=== PATIENT | female | born 1980 ===

== ENCOUNTER 2017-03-12 09:07 | Emergency (ER) | payer OTHER ==
[2017-03-12 09:24] VITALS: BP 138/79; PULSE 100; RESP 20; TEMP 98.1; O2SAT 100
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
== END 2017-03-12 12:17 | disposition home or self-care (01) ==
LOC: H.ER 09:07
DX: J02.0 Streptococcal pharyngitis (principal)

== ENCOUNTER 2017-10-27 18:03 | Emergency (ER) | payer OTHER ==
[2017-10-27 18:11] VITALS: BP 126/79; PULSE 82; RESP 18; TEMP 98; O2SAT 97
[2017-10-27] MEDS ORDERED: Sodium Chloride 0.9% 1,000 ML IV STA (18:46)
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
[2017-10-27 19:50] LABS: BASO # 0.1 K/uL (0.0-0.2); BASO % 0.6 % (0.0-2.0); EOS # 0.2 K/uL (0.0-0.7); HEMATOCRIT 35.8 % (34.0-47.0); LYMPH # 3.2 K/uL (1.0-4.3); LYMPH % 27.1 % (20.0-40.0); MEAN CELL VOLUME 84.6 fl (81.0-99.0); MEAN CORPUSCULAR HEMOGLOBIN 28.8 pg (27.0-31.0); MEAN PLATELET VOLUME 8.9 fl (7.2-11.7); MONO # 0.8 K/uL (0.0-0.8); MONO % 6.5 % (0.0-10.0); NEUT # 7.6 K/uL (1.8-7.0); NEUT % 63.8 % (50.0-75.0); RED CELL DISTRIBUTION WIDTH 14.1 % (11.5-14.5); WHITE BLOOD COUNT 11.9 K/uL (4.8-10.8)
[2017-10-27] MEDS ORDERED: Iohexol 300 100 ML IJ ONE (19:56)
[2017-10-27 19:58] LABS: BLOOD UREA NITROGEN 14 mg/dl (7-17); CALCIUM 8.8 mg/dL (8.4-10.2); CARBON DIOXIDE 23 mmol/L (22-30); CHLORIDE 108 mmol/L (98-107); GFR AFRICAN-AMERICAN > 60; GLUCOSE,RANDOM 96 mg/dL (65-105); SODIUM 141 mmol/l (132-148)
[2017-10-27] MEDS ORDERED: Sodium Chloride 0.9% 50 ML IV ONE (20:13)
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
--- NOTE | 2017-10-28 12:44 | RAD ---
PROCEDURE: Left Knee Radiographs. HISTORY: COMPARISON: None available FINDINGS: Examination limited by habitus. BONES: No acute displaced fracture. JOINTS: No dislocation. JOINT EFFUSION: No significant joint effusion. OTHER FINDINGS: None. IMPRESSION: No acute displaced fracture, dislocation, or significant joint effusion identified. If symptoms persist, or if there is continued clinical concern, x-ray follow-up in 7-10 days should be considered.
== END 2017-10-27 22:58 | disposition home or self-care (01) ==
LOC: H.ER 18:03
DX: F07.81 Postconcussional syndrome (principal); M25.562 Pain in left knee; R10.9 Unspecified abdominal pain; V43.62XA Car passenger injured in collision with other type car in traffic accident, initial encounter; Y92.410 Unspecified street and highway as the place of occurrence of the external cause; M54.30 Sciatica, unspecified side; Z90.49 Acquired absence of other specified parts of digestive tract
CPT/HCPCS: 70450; 73562; 74177; 80048; 81025; 85025; 96372; 96374; 99283; J1885; J2765; J7040; Q9967